=== PATIENT | male | born 1965 | race Caucasian/White ===

== ENCOUNTER 2018-05-21 17:44 | Inpatient (IN) ==
[2018-05-21 18:36] LABS: Basophils % 0.4 % (0.0-0.8); Eosinophils % 0.4 % (0.00-10.9); Hematocrit 46.7 VOL% (42.0-52.0); Hemoglobin 16.3 GM/DL (14.0-18.0); Immature Granulocytes % 0.4 %; Immature Granulocytes Absolute 0.04 #; Lymphocytes # 2.2 10*3/uL (1.4-4.0); Lymphocytes % 23.2 % (21.2-54.2); Mean Corpuscular HGB Conc 34.9 GM/DL (32-36); Mean Corpuscular Hemoglobin 30 PG (27-34); Mean Corpuscular Volume 85.7 FL (87-102); Mean Platelet Volume 12.7 FL (9.6-12.0); Monocytes # 0.9 10*3/uL (0.11-0.8); Monocytes % 9.2 % (1.7-12.7); Neutrophils # 6.3 10*3/uL (1.4-7.4); Neutrophils % 66.4 % (38.7-73.9); Platelet Count 156 T/CUMM (130-400); Red Blood Count 5.45 MC/CUMM (3.8-5.5); Red Cell Distribution Width 13.3 % (9.3-17.3); White Blood Count 9.6 T/CUMM (4-12)
[2018-05-21 18:48] LABS: INR 1.1; PT Patient Result 11.5 SECS; Partial Thromboplastin Time 27.1 SECS (0-40)
[2018-05-21 18:52] LABS: Alanine Aminotransferase 39 U/L (16-61); Albumin 3.7 G/DL (3.4-5.0); Alkaline Phosphatase 93 U/L (45-117); Aspartate Amino Transferase 29 U/L (0-37); Blood Urea Nitrogen 13 MG/DL (7-18); Calcium 8.4 MG/DL (8.5-10.1); Glucose 328 MG/DL (74-106); Osmolality,Calculated 287.7 MOS/KG (273-304); Potassium 3.4 MMOL/L (3.5-5.1); Sodium 138 MMOL/L (136-145); Total Protein 8.3 G/DL (6.4-8.3); Troponin I Only < 0.015 NG/ML (0.00-0.045)
[2018-05-21 21:20] LABS: Apearance,Urine Slightly Hazy (Clear); Bilirubin,Urine Negative (Negative); Blood, Urine Small mg/dL (Negative); Glucose,Urine (UA) >=500 mg/dL (Negative); Hyaline Casts,Urine 9 /LPF (0-3); Ketones,Urine Negative (Negative); Mucus,Urine Occasional /LPF (Occasional); Nitrite,Urine Negative (Negative); Protein,Urine Negative; RBC,Urine 3 /HPF (0-4); Renal Epithelial Cells,Urine Occasional /HPF (<1); Squamous Epithelial Cell,Urine Occasional /HPF (0-10); Urine Color Yellow (Yellow); Urine Specific Gravity 1.015 (1.001-1.035); Urine Urobilinogen < 2.0 EU/DL (0.2-1.0); WBC,Urine 6 /HPF (0-6)
[2018-05-21 21:24] LABS: Barbiturates Screen,Urine Negative (Negative); Benzodiazepines Screen,Urine Negative (Negative); Cannabinoid Screen,Urine Negative (Negative); Opiate Screen,Urine Negative (Negative); Phencyclidine Screen,Urine Negative (Negative)
[2018-05-21] MEDS ORDERED: ONDANSETRON 4 MG/2 ML VIAL IV PRN (22:15)
[2018-05-21] MEDS ORDERED: MORPHINE 4 MG/1 ML VIAL IV PRN (22:15)
[2018-05-21] MEDS ORDERED: ACETAMINOPHEN 325 MG TABLET PO PRN (22:15)
[2018-05-21] MEDS ORDERED: GLUCAGON 1 MG VIAL IM PRN (22:15)
[2018-05-21] MEDS ORDERED: DEXTROSE 50% 25 GM/50 ML VIAL IV PRN (22:15)
[2018-05-21] MEDS: SODIUM CHLORIDE 0.45% 1,000 ML IV SCH (23:26)
[2018-05-21] MEDS: cefTRIAXone 1,000 MG in SYRINGE 1 EACH IV SCH (23:40)
[2018-05-21] MEDS: INSULIN REGULAR 100 UNIT/ML SUBCUT SCH (23:41)
[2018-05-22] MEDS: GABAPENTIN 600 MG TABLET PO SCH ×4 (00:40→21:16)
[2018-05-22] MEDS: METOPROLOL TARTRATE 25 MG TABLET PO SCH ×3 (00:40→21:16)
[2018-05-22] MEDS: OMEGA 3 ACID ETHYL ESTERS 1 GM CAPSULE PO SCH ×3 (00:40→21:16)
[2018-05-22] MEDS: DOXYCYCLINE HYCLATE INJ 100 MG in SODIUM CHLORIDE 0.9% 100 ML IV SCH ×2 (00:41→21:39)
[2018-05-22 03:01] LABS: Troponin I Only < 0.015 NG/ML (0.00-0.045)
[2018-05-22 05:30] LABS: Basophils % 0.6 % (0.0-0.8); Eosinophils # 0.1 10*3/uL (0.0-0.87); Eosinophils % 1.5 % (0.00-10.9); Hematocrit 46.6 VOL% (42.0-52.0); Hemoglobin 15.5 GM/DL (14.0-18.0); Immature Granulocytes % 0.4 %; Immature Granulocytes Absolute 0.03 #; Lymphocytes # 2.3 10*3/uL (1.4-4.0); Lymphocytes % 31.3 % (21.2-54.2); Mean Corpuscular HGB Conc 33.3 GM/DL (32-36); Mean Corpuscular Hemoglobin 29 PG (27-34); Mean Corpuscular Volume 87.1 FL (87-102); Mean Platelet Volume 12.8 FL (9.6-12.0); Monocytes # 0.7 10*3/uL (0.11-0.8); Monocytes % 9.2 % (1.7-12.7); Neutrophils # 4.1 10*3/uL (1.4-7.4); Platelet Count 138 T/CUMM (130-400); Red Blood Count 5.35 MC/CUMM (3.8-5.5); Red Cell Distribution Width 13.5 % (9.3-17.3); White Blood Count 7.3 T/CUMM (4-12)
[2018-05-22 05:51] LABS: Albumin 3.4 G/DL (3.4-5.0); Bilirubin,Total 1.8 MG/DL (0.2-1.0); Potassium 3.2 MMOL/L (3.5-5.1); Risk Ratio 5.25; Total Protein 7.9 G/DL (6.4-8.3); VLDL CHOLESTEROL 28.8 MG/DL
[2018-05-22 05:53] LABS: Troponin I Only < 0.015 NG/ML (0.00-0.045)
[2018-05-22] MEDS: LEVOTHYROXINE 200 MCG TABLET PO SCH (06:08)
[2018-05-22] MEDS: INSULIN REGULAR 100 UNIT/ML SUBCUT SCH ×4 (08:36→21:16)
[2018-05-22] MEDS: INSULIN GLARGINE 100 UNIT/ML SUBCUT SCH (08:37)
[2018-05-22] MEDS: ENOXAPARIN 40 MG/0.4 ML SYRINGE SUBCUT SCH (08:38)
[2018-05-22] MEDS ORDERED: NON-FORMULARY MEDICATION (Dapagliflozin Propanediol [Farxiga] 10 MG) PO SCH (09:00)
[2018-05-22] MEDS: CLOTRIMAZOLE/BETAMETHASONE CREAM 15 GM TUBE TOP SCH ×2 (12:06→21:16)
[2018-05-22] MEDS: PANTOPRAZOLE 40 MG TABLET PO SCH (16:31)
[2018-05-22] MEDS: ASPIRIN CHEW 81 MG TABLET PO SCH (16:31)
[2018-05-22] MEDS: ATORVASTATIN 80 MG TABLET PO SCH (16:31)
[2018-05-22] MEDS: CHOLECALCIFEROL 1,000 UNIT TABLET PO SCH (16:31)
[2018-05-22] MEDS: LISINOPRIL 20 MG TABLET PO SCH (16:31)
[2018-05-22] MEDS: amLODIPine 5 MG TABLET PO SCH (16:32)
[2018-05-22] MEDS: SODIUM CHLORIDE 0.45% 1,000 ML IV SCH (17:59)
[2018-05-22] MEDS: cefTRIAXone 1,000 MG in SYRINGE 1 EACH IV SCH (22:43)
[2018-05-23] MEDS: LEVOTHYROXINE 200 MCG TABLET PO SCH (06:12)
[2018-05-23] MEDS: INSULIN REGULAR 100 UNIT/ML SUBCUT SCH ×2 (09:01→13:04)
[2018-05-23] MEDS: GABAPENTIN 600 MG TABLET PO SCH ×2 (09:02→15:30)
[2018-05-23] MEDS: CHOLECALCIFEROL 1,000 UNIT TABLET PO SCH (09:02)
[2018-05-23] MEDS: METOPROLOL TARTRATE 25 MG TABLET PO SCH (09:02)
[2018-05-23] MEDS: amLODIPine 5 MG TABLET PO SCH (09:02)
[2018-05-23] MEDS: ENOXAPARIN 40 MG/0.4 ML SYRINGE SUBCUT SCH (09:02)
[2018-05-23] MEDS: ASPIRIN CHEW 81 MG TABLET PO SCH (09:03)
[2018-05-23] MEDS: LISINOPRIL 20 MG TABLET PO SCH (09:03)
[2018-05-23] MEDS: ATORVASTATIN 80 MG TABLET PO SCH (09:03)
[2018-05-23 12:29] VITALS: BP 116/72
[2018-05-23] MEDS: CLOTRIMAZOLE/BETAMETHASONE CREAM 15 GM TUBE TOP SCH (12:39)
[2018-05-23] MEDS: INSULIN GLARGINE 100 UNIT/ML SUBCUT SCH (12:39)
[2018-05-23] MEDS: PANTOPRAZOLE 40 MG TABLET PO SCH (13:03)
[2018-05-23] MEDS: OMEGA 3 ACID ETHYL ESTERS 1 GM CAPSULE PO SCH (13:03)
== END 2018-05-23 15:45 | disposition home or self-care (01) | DRG 313 ==
LOC: N.ED 17:44 → N.EDINP 20:20 → N.TELES 20:57
PROVIDERS: ADMIT Internal Medicine; ATTEND Internal Medicine

== ENCOUNTER 2018-08-14 16:29 | Inpatient (IN) ==
[2018-08-14] MEDS: MEPERIDINE 50 MG/1 ML VIAL IM PRN ×2 (18:41→22:44)
[2018-08-14] MEDS: PROMETHAZINE 25 MG/1 ML VIAL IM PRN (18:42)
[2018-08-14 19:08] LABS: Basophils % 0.4 % (0.0-0.8); Eosinophils % 0.5 % (0.00-10.9); Hemoglobin 13.6 GM/DL (14.0-18.0); Immature Granulocytes % 0.7 %; Immature Granulocytes Absolute 0.05 #; Lymphocytes # 1.3 10*3/uL (1.4-4.0); Lymphocytes % 17.2 % (21.2-54.2); Mean Corpuscular HGB Conc 33.2 GM/DL (32-36); Mean Corpuscular Hemoglobin 30 PG (27-34); Mean Corpuscular Volume 89.1 FL (87-102); Mean Platelet Volume 12.5 FL (9.6-12.0); Monocytes # 0.7 10*3/uL (0.11-0.8); Monocytes % 9.8 % (1.7-12.7); Neutrophils # 5.3 10*3/uL (1.4-7.4); Neutrophils % 71.4 % (38.7-73.9); Platelet Count 165 T/CUMM (130-400); Red Cell Distribution Width 12.3 % (9.3-17.3); White Blood Count 7.4 T/CUMM (4-12)
[2018-08-14 19:27] LABS: Calcium 8.6 MG/DL (8.5-10.1); Osmolality,Calculated 275.1 MOS/KG (273-304); Potassium 3.9 MMOL/L (3.5-5.1)
[2018-08-14] MEDS: AMPICILLIN/SULBACTAM 3,000 MG in SODIUM CHLORIDE 0.9% 100 ML IV SCH (20:24)
[2018-08-14] MEDS ORDERED: GLUCAGON 1 MG VIAL IM PRN (20:31)
[2018-08-14] MEDS ORDERED: DEXTROSE 50% 25 GM/50 ML VIAL IV PRN (20:31)
[2018-08-14] MEDS: SODIUM CHLORIDE 0.45% 1,000 ML IV SCH (20:35)
[2018-08-14] MEDS ORDERED: MULTIVITAMIN INJ 10 ML in SODIUM CHLORIDE 0.45% 1,000 ML IV SCH (21:00)
[2018-08-14] MEDS ORDERED: LISINOPRIL 2.5 MG TABLET PO SCH (23:14)
[2018-08-14] MEDS: oxyCODONE/ACETAMINOPHEN 5-325 MG TABLET PO PRN (23:55)
[2018-08-15] MEDS: PROMETHAZINE 25 MG/1 ML VIAL IM PRN (00:53)
[2018-08-15] MEDS: AMPICILLIN/SULBACTAM 3,000 MG in SODIUM CHLORIDE 0.9% 100 ML IV SCH ×4 (03:44→17:42)
[2018-08-15] MEDS: INSULIN REGULAR 100 UNIT/ML SUBCUT SCH ×4 (03:45→17:42)
[2018-08-15] MEDS ORDERED: amLODIPine 5 MG TABLET PO SCH (07:30)
[2018-08-15] MEDS ORDERED: PANTOPRAZOLE 40 MG TABLET PO SCH (07:30)
[2018-08-15] MEDS: MEPERIDINE 50 MG/1 ML VIAL IM PRN (07:44)
[2018-08-15] MEDS: OMEGA 3 ACID ETHYL ESTERS 1 GM CAPSULE PO SCH ×2 (07:59→20:58)
[2018-08-15] MEDS: LEVOTHYROXINE 200 MCG TABLET PO SCH (07:59)
[2018-08-15] MEDS: CHOLECALCIFEROL 400 UNIT TABLET PO SCH (08:00)
[2018-08-15] MEDS: PANTOPRAZOLE 40 MG TABLET PO SCH (08:31)
[2018-08-15] MEDS: amLODIPine 5 MG TABLET PO SCH (08:31)
[2018-08-15] MEDS ORDERED: GABAPENTIN 600 MG TABLET PO SCH (09:00)
[2018-08-15] MEDS ORDERED: SEVOFLURANE 1 UNIT/15 MINUTE INH ONE (13:03)
[2018-08-15] MEDS ORDERED: ONDANSETRON 4 MG/2 ML VIAL ONE ×2 (13:03→13:58)
[2018-08-15] MEDS ORDERED: PROPOFOL 200 MG/20 ML VIAL IV ONE (13:03)
[2018-08-15] MEDS ORDERED: MIDAZOLAM 2 MG/2 ML VIAL ONE (13:48)
[2018-08-15] MEDS ORDERED: fentaNYL 100 MCG/2 ML VIAL ONE (13:48)
[2018-08-15] MEDS ORDERED: HYDROmorphone 2 MG/1 ML VIAL ONE (13:58)
[2018-08-15] MEDS ORDERED: HYDROmorphone 2 MG/1 ML VIAL IV PRN (13:59)
[2018-08-15] MEDS ORDERED: ONDANSETRON 4 MG/2 ML VIAL IV PRN (13:59)
[2018-08-15] MEDS: oxyCODONE/ACETAMINOPHEN 5-325 MG TABLET PO PRN ×2 (16:45→20:59)
[2018-08-15] MEDS: SODIUM CHLORIDE 0.45% 1,000 ML IV SCH (20:00)
[2018-08-15] MEDS: LISINOPRIL 20 MG TABLET PO SCH (20:58)
[2018-08-15] MEDS: ATORVASTATIN 80 MG TABLET PO SCH (20:58)
[2018-08-15] MEDS: GABAPENTIN 300 MG CAPSULE PO SCH (20:59)
[2018-08-15] MEDS: INSULIN GLARGINE 100 UNIT/ML SUBCUT SCH (20:59)
[2018-08-15] MEDS ORDERED: LISINOPRIL 2.5 MG TABLET PO SCH (21:00)
[2018-08-16] MEDS: AMPICILLIN/SULBACTAM 3,000 MG in SODIUM CHLORIDE 0.9% 100 ML IV SCH ×4 (00:16→17:38)
[2018-08-16] MEDS: INSULIN REGULAR 100 UNIT/ML SUBCUT SCH ×5 (00:16→17:26)
[2018-08-16] MEDS: SODIUM CHLORIDE 0.45% 1,000 ML IV SCH ×2 (05:11→19:05)
[2018-08-16] MEDS: LEVOTHYROXINE 200 MCG TABLET PO SCH (06:10)
[2018-08-16] MEDS: amLODIPine 5 MG TABLET PO SCH (08:13)
[2018-08-16] MEDS: PANTOPRAZOLE 40 MG TABLET PO SCH (08:13)
[2018-08-16] MEDS: OMEGA 3 ACID ETHYL ESTERS 1 GM CAPSULE PO SCH ×2 (08:13→20:31)
[2018-08-16] MEDS: CHOLECALCIFEROL 400 UNIT TABLET PO SCH (08:13)
[2018-08-16] MEDS: MEPERIDINE 50 MG/1 ML VIAL IM PRN ×2 (11:16→21:32)
[2018-08-16] MEDS: oxyCODONE/ACETAMINOPHEN 5-325 MG TABLET PO PRN (17:06)
[2018-08-16] MEDS: LISINOPRIL 20 MG TABLET PO SCH (20:31)
[2018-08-16] MEDS: INSULIN GLARGINE 100 UNIT/ML SUBCUT SCH (20:31)
[2018-08-16] MEDS: GABAPENTIN 300 MG CAPSULE PO SCH (20:31)
[2018-08-16] MEDS: ATORVASTATIN 80 MG TABLET PO SCH (20:31)
[2018-08-17] MEDS: INSULIN REGULAR 100 UNIT/ML SUBCUT SCH ×4 (00:04→17:34)
[2018-08-17] MEDS: AMPICILLIN/SULBACTAM 3,000 MG in SODIUM CHLORIDE 0.9% 100 ML IV SCH ×4 (00:04→17:54)
[2018-08-17] MEDS: SODIUM CHLORIDE 0.45% 1,000 ML IV SCH ×2 (05:01→17:54)
[2018-08-17] MEDS: LEVOTHYROXINE 200 MCG TABLET PO SCH (06:31)
[2018-08-17] MEDS: OMEGA 3 ACID ETHYL ESTERS 1 GM CAPSULE PO SCH ×2 (08:38→21:12)
[2018-08-17] MEDS: oxyCODONE/ACETAMINOPHEN 5-325 MG TABLET PO PRN ×4 (08:38→21:19)
[2018-08-17] MEDS: CHOLECALCIFEROL 400 UNIT TABLET PO SCH (08:38)
[2018-08-17] MEDS: PANTOPRAZOLE 40 MG TABLET PO SCH (08:38)
[2018-08-17] MEDS: amLODIPine 5 MG TABLET PO SCH (08:54)
[2018-08-17] MEDS: MAGNESIUM HYDROXIDE SUSP 30 ML UDCUP PO PRN (14:15)
[2018-08-17] MEDS: LISINOPRIL 20 MG TABLET PO SCH (21:12)
[2018-08-17] MEDS: ATORVASTATIN 80 MG TABLET PO SCH (21:12)
[2018-08-17] MEDS: INSULIN GLARGINE 100 UNIT/ML SUBCUT SCH (21:13)
[2018-08-17] MEDS: GABAPENTIN 300 MG CAPSULE PO SCH (21:13)
[2018-08-17] MEDS: MEPERIDINE 50 MG/1 ML VIAL IM PRN (21:25)
[2018-08-18] MEDS: AMPICILLIN/SULBACTAM 3,000 MG in SODIUM CHLORIDE 0.9% 100 ML IV SCH ×4 (00:25→17:55)
[2018-08-18] MEDS: INSULIN REGULAR 100 UNIT/ML SUBCUT SCH ×5 (01:12→20:47)
[2018-08-18] MEDS: LEVOTHYROXINE 200 MCG TABLET PO SCH (06:09)
[2018-08-18] MEDS: MAGNESIUM HYDROXIDE SUSP 30 ML UDCUP PO PRN (09:28)
[2018-08-18] MEDS: CHOLECALCIFEROL 400 UNIT TABLET PO SCH (09:28)
[2018-08-18] MEDS: OMEGA 3 ACID ETHYL ESTERS 1 GM CAPSULE PO SCH ×2 (09:28→20:47)
[2018-08-18] MEDS: PANTOPRAZOLE 40 MG TABLET PO SCH (09:28)
[2018-08-18] MEDS: oxyCODONE/ACETAMINOPHEN 5-325 MG TABLET PO PRN ×2 (09:28→19:03)
[2018-08-18] MEDS: amLODIPine 5 MG TABLET PO SCH (10:51)
[2018-08-18] MEDS: SODIUM CHLORIDE 0.45% 1,000 ML IV SCH ×3 (10:51→16:55)
[2018-08-18] MEDS ORDERED: BISACODYL 10 MG SUPP RECTAL ONE (11:27)
[2018-08-18] MEDS ORDERED: INSULIN GLARGINE 100 UNIT/ML SUBCUT SCH (16:16)
[2018-08-18] MEDS: ATORVASTATIN 80 MG TABLET PO SCH (20:47)
[2018-08-18] MEDS: LISINOPRIL 20 MG TABLET PO SCH (20:47)
[2018-08-18] MEDS: GABAPENTIN 300 MG CAPSULE PO SCH (20:47)
[2018-08-18] MEDS: MEPERIDINE 50 MG/1 ML VIAL IM PRN (23:30)
[2018-08-19] MEDS: AMPICILLIN/SULBACTAM 3,000 MG in SODIUM CHLORIDE 0.9% 100 ML IV SCH ×4 (01:04→17:41)
[2018-08-19] MEDS: PROMETHAZINE 25 MG/1 ML VIAL IM PRN (01:05)
[2018-08-19] MEDS: LEVOTHYROXINE 200 MCG TABLET PO SCH (06:28)
[2018-08-19] MEDS: SODIUM CHLORIDE 0.45% 1,000 ML IV SCH ×3 (06:28→21:32)
[2018-08-19] MEDS: MEPERIDINE 50 MG/1 ML VIAL IM PRN ×2 (06:43→21:29)
[2018-08-19] MEDS: OMEGA 3 ACID ETHYL ESTERS 1 GM CAPSULE PO SCH ×3 (07:57→21:30)
[2018-08-19] MEDS: amLODIPine 5 MG TABLET PO SCH ×2 (07:57→09:49)
[2018-08-19] MEDS: CHOLECALCIFEROL 400 UNIT TABLET PO SCH ×2 (07:57→09:49)
[2018-08-19] MEDS: PANTOPRAZOLE 40 MG TABLET PO SCH ×2 (07:57→09:49)
[2018-08-19] MEDS: oxyCODONE/ACETAMINOPHEN 5-325 MG TABLET PO PRN ×2 (09:45→19:50)
[2018-08-19] MEDS: INSULIN REGULAR 100 UNIT/ML SUBCUT SCH ×4 (09:49→21:39)
[2018-08-19] MEDS ORDERED: ONDANSETRON 4 MG/2 ML VIAL IV PRN (12:30)
[2018-08-19] MEDS ORDERED: INSULIN GLARGINE 100 UNIT/ML SUBCUT SCH ×2 (21:00)
[2018-08-19] MEDS: GABAPENTIN 300 MG CAPSULE PO SCH (21:30)
[2018-08-19] MEDS: ATORVASTATIN 80 MG TABLET PO SCH (21:30)
[2018-08-19] MEDS: LISINOPRIL 20 MG TABLET PO SCH (21:30)
[2018-08-20] MEDS: AMPICILLIN/SULBACTAM 3,000 MG in SODIUM CHLORIDE 0.9% 100 ML IV SCH ×3 (04:29→12:23)
[2018-08-20] MEDS: SODIUM CHLORIDE 0.45% 1,000 ML IV SCH ×2 (04:30→13:26)
[2018-08-20] MEDS: LEVOTHYROXINE 200 MCG TABLET PO SCH (06:29)
[2018-08-20] MEDS: INSULIN REGULAR 100 UNIT/ML SUBCUT SCH ×2 (07:30→10:55)
[2018-08-20] MEDS: CHOLECALCIFEROL 400 UNIT TABLET PO SCH (08:06)
[2018-08-20] MEDS: PANTOPRAZOLE 40 MG TABLET PO SCH (08:06)
[2018-08-20] MEDS: OMEGA 3 ACID ETHYL ESTERS 1 GM CAPSULE PO SCH (08:06)
[2018-08-20] MEDS: amLODIPine 5 MG TABLET PO SCH (08:07)
[2018-08-20] MEDS ORDERED: MUPIROCIN 2% OINT 22 GM TUBE TOP ONE (11:10)
[2018-08-20] MEDS ORDERED: MEPERIDINE 25 MG/1 ML VIAL ONE (11:46)
[2018-08-20] MEDS ORDERED: ONDANSETRON 4 MG/2 ML VIAL ONE ×2 (11:46→11:55)
[2018-08-20] MEDS ORDERED: PROMETHAZINE 25 MG/1 ML VIAL ONE (11:46)
[2018-08-20] MEDS ORDERED: MEPERIDINE 25 MG/1 ML VIAL IV PRN (11:52)
[2018-08-20] MEDS ORDERED: PROMETHAZINE INJ 25 MG in SODIUM CHLORIDE 0.9% 50 ML IV PRN (11:52)
[2018-08-20] MEDS ORDERED: MORPHINE 10 MG/1 ML VIAL IV PRN (11:52)
[2018-08-20] MEDS ORDERED: diphenhydrAMINE 50 MG/1 ML VIAL IV PRN (11:52)
[2018-08-20] MEDS ORDERED: ONDANSETRON 4 MG/2 ML VIAL IV PRN (11:52)
[2018-08-20] MEDS ORDERED: fentaNYL 100 MCG/2 ML VIAL ONE (11:54)
[2018-08-20] MEDS ORDERED: SEVOFLURANE 1 UNIT/15 MINUTE INH ONE (11:54)
[2018-08-20] MEDS ORDERED: MIDAZOLAM 2 MG/2 ML VIAL ONE (11:54)
[2018-08-20] MEDS ORDERED: PROPOFOL 200 MG/20 ML VIAL IV ONE (11:54)
[2018-08-20] MEDS ORDERED: LACTATED RINGERS 1,000 ML IV ONE (11:54)
[2018-08-20 12:25] LABS: Calcium 8.4 MG/DL (8.5-10.1); Osmolality,Calculated 279.3 MOS/KG (273-304); Potassium 3.5 MMOL/L (3.5-5.1)
[2018-08-20 12:41] VITALS: BP 108/63
== END 2018-08-20 14:56 | disposition home or self-care (01) | DRG 857 ==
LOC: N.5E 17:10
PROVIDERS: ADMIT Urology; ATTEND Urology